=== PATIENT | male | born 1965 | race African-American/Black ===

== ENCOUNTER 2018-08-12 18:17 | Emergency (ER) | payer MEDICAID ==
[~2018-08-12] VITALS: Ht 167.6 cm; Wt 68.0 kg
[2018-08-12 18:27] VITALS: BP 133/78
== END 2018-08-12 19:39 | disposition home or self-care (01) ==
LOC: ER 18:24
DX: Z59.0 Homelessness (principal); Z76.0 Encounter for issue of repeat prescription

== ENCOUNTER 2018-08-13 04:22 | Emergency (ER) | payer MEDICAID | END 2018-08-13 04:45 | disposition left against medical advice (07) | LOC: ER 04:22 | DX: Z76.0 Encounter for issue of repeat prescription (principal); Z53.21 Procedure and treatment not carried out due to patient leaving prior to being seen by health care provider ==

== ENCOUNTER 2018-08-13 08:44 | Emergency (ER) | payer MEDICAID ==
[~2018-08-13] VITALS: Ht 167.6 cm; Wt 71.7 kg
[2018-08-13 08:59] VITALS: BP 123/89
[2018-08-13 13:58] LABS: Basophils # (auto) 0 uL; Basophils % (auto) 0.8 % (0.0-2.0); Eosinophils # (auto) 0.1 uL; Eosinophils % (auto) 2.7 % (0.0-7.0); Hematocrit 43.2 % (41.0-53.0); Hemoglobin 13.8 g/dL (13.5-17.5); Lymphocytes # (auto) 2.9 uL; Mean Corpuscular Hemoglobin 29.2 pg (28.0-32.0); Mean Corpuscular Hgb Conc. 31.9 g/dL (32.0-36.0); Mean Corpuscular Volume 91.7 fL (80.0-100.0); Monocytes # (auto) 0.5 uL; Monocytes % (auto) 8.9 % (0.0-12.0); Neutrophils # (auto) 1.9 uL; Neutrophils % (auto) 34.6 % (37.0-80.0); Platelet Count (auto) 329 10^3/uL (140-450); Red Blood Cells 4.71 10^6/uL (4.5-5.90); Red Cell Distribution Width 13.2 % (11.8-14.3); White Blood Cell 5.4 10^3/uL (4.4-10.8)
[2018-08-13 14:41] LABS: Potassium 4.1 mmol/L (3.5-5.1)
[2018-08-13 14:48] LABS: Albumin 3.9 g/dL (3.4-5.0); BUN/Creatinine Ratio 19.4; Bilirubin, Total 0.4 mg/dL (0.2-1.0); Calcium 8.7 mg/dL (8.5-10.1); Magnesium 2.5 mg/dL (1.6-2.6); Total Protein 7.6 g/dL (6.4-8.2)
== END 2018-08-13 15:52 | disposition home or self-care (01) ==
LOC: ER 08:44
DX: M72.2 Plantar fascial fibromatosis (principal); F31.9 Bipolar disorder, unspecified; F20.9 Schizophrenia, unspecified; F41.9 Anxiety disorder, unspecified; Z76.0 Encounter for issue of repeat prescription
CPT/HCPCS: 36415; 80053; 83735; 85025

== ENCOUNTER → 2018-08-13 | Emergency (ER) | payer MEDICAID | END | disposition left against medical advice (07) | LOC: ER 17:48 | DX: M79.672 Pain in left foot (principal); M79.671 Pain in right foot; Z53.21 Procedure and treatment not carried out due to patient leaving prior to being seen by health care provider ==